=== PATIENT | female | born 1970 | race African-American/Black ===

== ENCOUNTER 2018-10-19 20:53 | Inpatient (IN) | payer OTHER, MEDICAID ==
[~2018-10-19] VITALS: Ht 167.6 cm; Wt 91.2 kg
[2018-10-19] MEDS ORDERED: SODIUM CHLORIDE 0.9% 1,000 ML IV ONE (21:47)
[2018-10-19] MEDS ORDERED: METHYLPREDNISOLONE SOD SUCC 125 MG/2 ML VIAL IV STA (21:47)
[2018-10-19] MEDS ORDERED: AZITHROMYCIN 500 MG in DEXT 5% WATER 250 ML IV SCH (22:00)
[2018-10-19] MEDS ORDERED: IPRATROPIUM/ALBUTEROL 0.5-3(2.5)MG/3ML NEB HHN ONE (22:00)
[2018-10-19 22:29] LABS: BG BASE EXCESS -1.6 mmol/L (-2.0-2.0); BG CARBOXYHEMOGLOBIN 0.6 % (0.5-1.5); BG DEOXYHEMOGLOBIN 7.6 % (0.0-5.0); BG FRACTION INSPIRED OXYGEN 21; BG HCO3 ACT 20.2 mmol/L (22.0-26.0); BG METHEMOGLOBIN 0.3 % (0.0-1.5); BG OXYGEN SATURATION 92.3 % (92.0-98.5); BG OXYHEMOGLOBIN 91.5 % (94.0-97.0); BG PCO2 27.4 mmHg (35.0-45.0); BG PH 7.486 (7.350-7.450); BG PO2 56.2 mmHg (75.0-100.0); BG SAMPLE SITE RIGHT RADIAL; BG TOTAL HEMOGLOBIN 15.4 g/dL (12.0-18.0); BG VENT MODE T-TUBE
[2018-10-20 00:29] LABS: HEMATOCRIT. 41.9 % (36.0-48.0); MEAN CORPUSCULAR HEMOGLOBIN 30.6 pg (28.0-32.0); MEAN CORPUSCULAR VOLUME 91.8 fL (81.0-99.0); MEAN PLATELET VOLUME 8.4 fl (7.4-10.4); PLATELET 188 x1000/uL (130-400); RED BLOOD CELL COUNT 4.57 mill/uL (4.2-5.4); RED CELL DISTRIBUTION WIDTH 14.3 % (11.6-14.6)
[2018-10-20 00:34] LABS: HCG SCREEN NEGATIVE
[2018-10-20 00:35] LABS: CHLORIDE 105 mEq/L (98-107)
[2018-10-20 00:38] LABS: ETHANOL BLOOD < 10 mg/dL; INR 1.1; PARTIAL THROMBOPLASTIN TIME 27.5 sec (23.4-31.0); PROTHROMBIN TIME 11.1 sec (9.6-11.0)
[2018-10-20 01:03] LABS: CLARITY URINE CLEAR (CLEAR); COLOR URINE YELLOW (YELLOW); KETONES URINE TRACE (NEGATIVE); LEUKOCYTE ESTERASE URINE 1+ (NEGATIVE); NITRITE URINE NEGATIVE (NEGATIVE); OCCULT BLOOD URINE TRACE (NEGATIVE); PH URINE 7.5 (4.5-8.0); PROTEIN URINE 1+ (NEGATIVE); SPECIFIC GRAVITY URINE 1.016 (1.005-1.030); UROBILINOGEN URINE 0.2 E.U./dL (0.2-1.0)
[2018-10-20 01:13] LABS: PLATELET ESTIMATE NORMAL
[2018-10-20 01:17] LABS: *AMPHETAMINES SCREEN URINE NEGATIVE (NEGATIVE); *BARBITURATES SCREEN URINE NEGATIVE (NEGATIVE); *BENZODIAZEPINES SCREEN URINE NEGATIVE (NEGATIVE)
[2018-10-20 01:18] LABS: *COCAINE SCREEN URINE NEGATIVE (NEGATIVE); METHADONE URINE SCREEN NEGATIVE (NEGATIVE); OPIATES URINE SCREEN NEGATIVE (NEGATIVE); PHENCYCLIDINE URINE SCREEN NEGATIVE (NEGATIVE)
[2018-10-20 01:21] LABS: CANNABINOID URINE SCREEN PRESUMTIVE POSITIVE (NEGATIVE)
[2018-10-20] MEDS ORDERED: IOHEXOL-350 100 ML BOTTLE ONE (07:01)
[2018-10-20] MEDS ORDERED: NITROGLYCERIN 0.4MG TABLET SL SL PRN (07:45)
[2018-10-20] MEDS ORDERED: IPRATROPIUM/ALBUTEROL 0.5-3(2.5)MG/3ML NEB INH PRN (07:45)
[2018-10-20] MEDS ORDERED: DOCUSATE SODIUM 100MG CAPSULE PO PRN (07:45)
[2018-10-20] MEDS ORDERED: SODIUM CHLORIDE 0.9% 1000ML BAG (SEPSIS BOLUS) IV SCH (07:45)
[2018-10-20] MEDS ORDERED: ZOLPIDEM TARTRATE 5MG TABLET PO PRN (07:45)
[2018-10-20] MEDS ORDERED: KETOROLAC 15MG/ML VIAL IV PRN (07:45)
[2018-10-20] MEDS ORDERED: MAGNESIUM/ALUMINUM HYDROXIDE/SIMETHICONE 30ML UDC PO PRN (07:45)
[2018-10-20] MEDS ORDERED: CLONIDINE 0.1MG TABLET PO PRN (07:45)
[2018-10-20] MEDS ORDERED: GUAIFENESIN 200MG/10ML SUGAR FREE UDC PO PRN (07:45)
[2018-10-20] MEDS ORDERED: ACETAMINOPHEN 325MG TABLET PO PRN (07:45)
[2018-10-20] MEDS ORDERED: ONDANSETRON HCL 4MG/2ML INJ IV PRN (07:45)
[2018-10-20] MEDS ORDERED: ENOXAPARIN 40MG/0.4ML SYR SUBCUT SCH (07:45)
[2018-10-20] MEDS ORDERED: LORAZEPAM 0.5MG TABLET PO PRN (07:45)
[2018-10-20 10:00] VITALS: BP 196/96
[2018-10-20] MEDS: ASPIRIN 325MG EC TABLET PO SCH (10:07)
[2018-10-20] MEDS: AMLODIPINE 10MG TABLET PO SCH (10:07)
[2018-10-20] MEDS: LISINOPRIL 20MG TABLET PO SCH ×2 (10:08→21:13)
[2018-10-20] MEDS ORDERED: CEFTRIAXONE 1 G PREMIX 50 ML IV SCH (11:00)
[2018-10-20] MEDS: FAMOTIDINE 20MG TABLET PO SCH ×2 (11:08→21:13)
[2018-10-20] MEDS: GUAIFENESIN/DM 600MG/30MG ER TAB 12HR PO SCH ×2 (11:08→21:13)
[2018-10-20] MEDS: METHYLPREDNISOLONE SOD SUCC 125 MG/2 ML VIAL IV SCH ×2 (11:08→17:06)
[2018-10-20] MEDS: ENOXAPARIN 30MG/0.3ML SYR SUBCUT SCH ×2 (11:10→21:13)
[2018-10-20 12:00] VITALS: BP_SYST 154; BP_SYST 196; BP_DIAS 78; BP_DIAS 96
[2018-10-20 16:00] VITALS: BP 126/68
[2018-10-20 16:58] LABS: CREATINE KINASE MB FRACTION 1.6 ng/mL (0.5-3.6)
[2018-10-20 20:00] VITALS: BP 144/84
[2018-10-20] MEDS ORDERED: AZITHROMYCIN 500 MG in DEXT 5% WATER 250 ML IV SCH (23:00)
[2018-10-20 23:58] LABS: CREATINE KINASE MB FRACTION 1.2 ng/mL (0.5-3.6)
[2018-10-21] VITALS: BP 138/76
[2018-10-21] MEDS: IPRATROPIUM/ALBUTEROL 0.5-3(2.5)MG/3ML NEB HHN SCH ×4 (00:34→11:51)
[2018-10-21] MEDS: METHYLPREDNISOLONE SOD SUCC 125 MG/2 ML VIAL IV SCH ×2 (01:25→08:27)
[2018-10-21 04:00] VITALS: BP 148/66
[2018-10-21] MEDS: LISINOPRIL 20MG TABLET PO SCH (08:24)
[2018-10-21] MEDS: FAMOTIDINE 20MG TABLET PO SCH (08:24)
[2018-10-21] MEDS: AMLODIPINE 10MG TABLET PO SCH (08:25)
[2018-10-21] MEDS: ASPIRIN 325MG EC TABLET PO SCH (08:25)
[2018-10-21] MEDS: GUAIFENESIN/DM 600MG/30MG ER TAB 12HR PO SCH (08:25)
[2018-10-21] MEDS: ENOXAPARIN 30MG/0.3ML SYR SUBCUT SCH (08:26)
[2018-10-21 11:19] LABS: BG CARBOXYHEMOGLOBIN 0.6 % (0.5-1.5); BG DEOXYHEMOGLOBIN 6.8 % (0.0-5.0); BG FRACTION INSPIRED OXYGEN 21; BG HCO3 ACT 21.6 mmol/L (22.0-26.0); BG METHEMOGLOBIN 0.3 % (0.0-1.5); BG OXYGEN SATURATION 93.1 % (92.0-98.5); BG OXYHEMOGLOBIN 92.3 % (94.0-97.0); BG PCO2 30.7 mmHg (35.0-45.0); BG PH 7.465 (7.350-7.450); BG PO2 63.8 mmHg (75.0-100.0); BG SAMPLE SITE RIGHT RADIAL; BG TOTAL HEMOGLOBIN 15.4 g/dL (12.0-18.0); BG VENT MODE ROOM AIR
[2018-10-21 11:30] VITALS: BP 138/72
[2018-10-21] MEDS ORDERED: GUAI600T26 MT (12:12)
== END 2018-10-21 13:35 | disposition home or self-care (01) | DRG 720 ==
LOC: ER 21:30 → CANBEDREQ 10-20 01:36 → EDBEDREQ 10-20 04:25 → EDBEDREQTM 10-20 04:25 → 7WST 10-20 04:52 → EDBEDREQTM 10-20 04:54 → EDBEDREQ 10-20 04:54 → ENRESERV 10-20 07:13 → CANRESERV 10-20 07:13 → ENRESERV 10-20 08:27
PROVIDERS: ADMIT Internal Medicine; ATTEND Internal Medicine
DX: A41.9 Sepsis, unspecified organism (principal); J96.01 Acute respiratory failure with hypoxia; J44.1 Chronic obstructive pulmonary disease with (acute) exacerbation; E66.9 Obesity, unspecified; F12.10 Cannabis abuse, uncomplicated; F17.210 Nicotine dependence, cigarettes, uncomplicated; I10 Essential (primary) hypertension; N39.0 Urinary tract infection, site not specified; J44.0 Chronic obstructive pulmonary disease with (acute) lower respiratory infection; Z79.899 Other long term (current) drug therapy; Z68.32 Body mass index [BMI] 32.0-32.9, adult; J18.9 Pneumonia, unspecified organism
CPT/HCPCS: 36415; 36600; 71045; 71275; 80061; 80305; 80320; 82375; 82550; 82553; 82805; 83036; 83605; 83880; 84484; 84703; 85379; 93005; 93970; 94640; 96365; 96366; 96375; 99285; 99406; J0456; J0696; J1650; J1885; J2930; J7030; J7060; J7620; Q9967; G0480

== ENCOUNTER 2020-05-03 11:49 | Emergency (ER) | payer MEDICAID ==
[~2020-05-03] VITALS: Ht 162.6 cm; Wt 98.0 kg
[2020-05-03] MEDS ORDERED: IBUPROFEN 600MG TABLET PO ONE (12:15)
[2020-05-03 12:19] VITALS: BP 136/89
== END 2020-05-03 12:31 | disposition home or self-care (01) ==
LOC: ER 11:49
DX: Z03.818 Encounter for observation for suspected exposure to other biological agents ruled out (principal); M79.18 Myalgia, other site; Z90.710 Acquired absence of both cervix and uterus
CPT/HCPCS: 81025; 87635; 99283; C9803